=== PATIENT | female | born 1960 | race African-American/Black ===

== ENCOUNTER 2018-05-09 15:43 | Outpatient (CLI) | payer SELFPAY | END 2018-05-09 15:44 | disposition EMS.NT | LOC: EMS 15:43 | PROVIDERS: ATTEND Surgery | DX: M25.531 Pain in right wrist (principal); M25.431 Effusion, right wrist; W22.11XA Striking against or struck by driver side automobile airbag, initial encounter; V47.5XXA Car driver injured in collision with fixed or stationary object in traffic accident, initial encounter; Y92.410 Unspecified street and highway as the place of occurrence of the external cause ==

== ENCOUNTER 2022-10-07 07:32 | Outpatient (CLI) | payer OTHER | END 2022-10-07 07:33 | disposition home or self-care (01) | LOC: DI 07:32 | PROVIDERS: ATTEND Student in an Organized Health Care Education/Training Program | DX: I10 Essential (primary) hypertension (principal) | CPT/HCPCS: 93306 ==